=== PATIENT | male | born 1995 | race Hispanic/Latino ===

== ENCOUNTER 2024-03-08 15:29 | Emergency (ER) | payer SELFPAY ==
[2024-03-08] VITALS (7 sets, daily range): BP systolic 117–134; BP diastolic 75–88
[~2024-03-08] VITALS: Ht 172.7 cm; Wt 72.5 kg
[~2024-03-08 15:29] MED LIST: AMOXICILLIN500 MG PO; GENTAK0.32 OU; MEDDOSEPAK PO; NAPROSYN500 MG PO; NO HOME MEDS; TUBERSOL5 MG/0.1 M ID; ULTRAM50 M1 PO; [UNRECOGNIZED DRUG - REMARK]
[2024-03-08] MEDS ORDERED: LIDOcaine HCl 1% (Local Anesth.) 20 ML VIAL STI STA (15:34)
[2024-03-08] MEDS ORDERED: NEOMYCIN-BACITRACIN-POLYMYXIN 0.5 GM/PAK PAK TOP ONE (15:35)
[2024-03-08] MEDS ORDERED: BUPIVACAINE HCL PF 0.5 % 50 MG/10 ML SDV STI ONE (15:35)
[2024-03-08] MEDS ORDERED: Diph, Acellular Pertussis, Tet 0.5 ML/VIAL (Tdap) SDV IM ONE (15:35)
[2024-03-08] MEDS ORDERED: SODIUM CHLORIDE 500 ML BTL IR ONE (15:35)
[2024-03-08] MEDS ORDERED: POVIDONE IODINE 0.5 OZ/BTL TOP ONE (15:40)
[2024-03-08] MEDS ORDERED: KEFLEX500 MG PO ×2 (16:48→20:29)
[2024-03-08] MEDS ORDERED: LORTAB 5/3255 MG PO (16:48)
[2024-03-08] MEDS ORDERED: LORTAB 1010 MG PO (20:00)
== END 2024-03-08 16:58 | disposition home or self-care (01) | DRG 605 ==
LOC: ED 15:29
PROC: 0HQGXZZ Repair Left Hand Skin, External Approach (ICD-10-PCS; principal; 2024-03-08)
DX: S61.217A Laceration without foreign body of left little finger without damage to nail, initial encounter (principal); W20.8XXA Other cause of strike by thrown, projected or falling object, initial encounter; Y93.89 Activity, other specified; Y92.009 Unspecified place in unspecified non-institutional (private) residence as the place of occurrence of the external cause; F17.200 Nicotine dependence, unspecified, uncomplicated